=== PATIENT | female | born 1960 | race Caucasian/White ===

== ENCOUNTER 2016-10-11 11:28 | Emergency (ER) ==
[2016-10-11] MEDS ORDERED: PROTONIX IV ONE (12:24)
[2016-10-11] MEDS ORDERED: ZOFRAN IV ONE (12:24)
[2016-10-11] MEDS ORDERED: NS 1,000 ML IV ONE (12:24)
[2016-10-11] MEDS ORDERED: SODIUM CHLORIDE 0.9% INJ ONE (12:24)
[2016-10-11 12:34] LABS: BASO% 0.4 % (0.0-0.8); EOS% 3.4 % (0.0-10.0); HEMOGLOBIN 7.1 g/dL (12.0-16.0); IMM GRAN# 0.09 X1000 (0.0-0.04); IMM GRAN% 0.8 % (0.0-0.5); LYMPH# 1.04 X1000 (1.2-3.4); LYMPH% 8.9 % (20.5-51.1); MANUAL DIFF NEEDED? YES; MCH 32.4 PG (27-31); MCHC 29.6 g/dL (33-37); MCV 109.6 FL (81-99); MONO# 0.96 X1000 (0.11-0.59); MONO% 8.3 % (1.7-9.3); MPV 9.7 FL (7.4-10.4); NEUT% 78.2 % (42.2-75.2); PLT 499 X1000 (130-400); RBC 2.19 XMIL (4.2-5.4)
--- NOTE | 2016-10-11 13:08 | PROVIDER DOCUMENTATION ---
HPI-Abdominal Pain/GI Problem - General Chief Complaint: GI Bleed Stated Complaint: RECTAL BLEEDING,BLOOD COUNT LOW Time Seen by Provider: 10/11/16 12:22 Source: patient Allergies/Adverse Reactions: Patient Allergies Allergy/AdvReac Type Severity Reaction Status Date / Time nizatidine [From Axid] Allergy RASH Verified 08/01/16 10:10 Home Medications: Aspirin 81 mg PO DAILY 06/09/16 Hydrocodone/Acetaminophen [Nerinx 7.5-325 Tablet] 1 each PO Q4-6H PRN PRN Metoprolol [Lopressor] 25 mg PO BID 06/09/16 Sevelamer Carbonate [Renvela] 800 mg PO TID 06/09/16 Amiodarone [Cordarone] 200 mg PO DAILY 08/01/16 Warfarin [Coumadin] 5 mg PO QHS 08/01/16 - History of Present Illness-ABD Nature of Presenting Problems: Pt is 56 y/o F presents to the ED with rectal bleeding. Pt states bleeding started two days ago. Pt states Dr Marin did not want her to go to dialysis today due to rectal bleed and to go to ED and be admitted for rectal bleed. Pt states she did not come to ED Sunday due to having an appointment with Dr. Cordova, Pt states Dr. Cordova's office stated come to appointment at his office first. Pt denies BM today. Pt states bleeding with no BM. Pt states no bleeding today but two episodes yesterday. Pt states more fatigued today. Abdominal Pain Onset Location: reports: other (no abdominal pain) Pain Radiation: reports: no radiation Quality of Pain: reports: none Onset/Duration: reports: 2 days ago (rectal bleeding started) Timing: reports: still present, intermittent Activities at Onset: reports: light activity Exposure to sick contacts?: No Modifying Factors: improves with: nothing Associated Symptoms: reports: fatigue, weakness. denies: anxiety, arm pain, back/neck pain, chest pain, constipation, cough, diaphoresis, diarrhea, dizziness, EENT symptoms, fever/chills, genitourinary problems, headaches, heartburn, joint pain, loss of appetite, malaise, muscle aches, sinus congestion /drainage, nausea, rash, seizure, shortness of breath, sensory/motor loss, pain with inspiration, swelling/mass in abdomen, syncope, vomiting, trouble walking Last BM: last night Dark Stools Present?: reports: maroon, bright red blood Rectal Bleeding: reports: bleeding without stool Rectal Pain: reports: none Emesis Description: reports: none Bruising or Bleeding Gums?: No Similar Symptoms Previously?: Yes Recently seen or treated by another doctor?: Yes Review of Systems - Adult - REVIEW OF SYSTEMS - ADULT Constitutional: denies: chills, fever Eyes: denies: blurred vision, double vision Ears, Nose, Mouth & Throat: denies: ear pain, nose pain, throat pain Cardiovascular: reports: irregular heart rate (tachy). denies: chest pain, heart murmur Respiratory: denies: cough, shortness of breath, wheezing Gastrointestinal: reports: rectal bleeding. denies: abdominal pain, diarrhea, nausea, vomiting Genitourinary: denies: dysuria, hematuria Musculoskeletal: denies: bone pain, joint pain, neck pain Integumentary: denies: hives, itching Neurological: denies: dizziness/vertigo, headache/migraines Psychiatric: reports: no symptoms reported Endocrine: reports: no symptoms reported Hematologic/Lymphatic: reports: no symptoms reported Allergic/Immunologic: reports: no symptoms reported All Other Systems: Reviewed and Negative Past History - Adult - PAST MEDICAL HISTORY-ADULT Review of Records: reports: Nursing Assessment Review, Medications Reviewed, Social history reviewed & non-contributory. Major Childhood Illnesses: reports: denies history Cardiovascular: reports: A-Fib, HTN Respiratory: reports: denies history Gastrointestinal: reports: denies history Obstetrical/Gynecological: reports: denies history Genitourinary: reports: dialysis, ESRD, kidney disease Musculoskeletal: reports: other Neurological: reports: denies history Psychiatric: reports: denies history Endocrine/Immune: reports: denies history Other Conditions: reports: denies history - PRIOR SURGERIES/PROCEDURES Surgical/Procedure History: reports: appendectomy, cholecystectomy, hysterectomy , hernia repair - FAMILY HISTORY Family History: reviewed, not pertinent - SOCIAL HISTORY Smoking: cigarettes, less than 1 pack/day Provider spent 3-5 mins advising pt. on dangers of tobacco.: Discussed manners to quit use, and f/u contacts for add'l counseling. Substance Use: denies Living Situation: family Physical Exam-General - PHYSICAL EXAM-ADULT Initial Vital Signs Reviewed: Yes - CONSTITUTIONAL General Appearance: appears well, alert, no apparent distress, obese - EYES Eyes: PERRL/EOMI, pink conjunctivae - HEAD, EARS, NOSE, MOUTH & THROAT HENMT: normocephalic/atraumatic, normal ENT inspection. negative: moist mucous membranes (dry) - NECK Neck: non-tender, full range of motion, supple, normal inspection - RESPIRATORY Respiratory: chest non-tender, lungs clear, normal breath sounds - CARDIOVASCULAR Cardiovascular: normal peripheral pulses, no edema, tachycardia - GASTROINTESTINAL (ABDOMEN) Abdominal Exam: normal bowel sounds, non tender, soft - LYMPHATIC Lymphatic: no adenopathy - MUSCULOSKELETAL Back Exam: normal inspection, no CVA tenderness, no vertebral tenderness Extremity: normal range of motion, non-tender, normal gait - SKIN Integumentary: normal color, normal turgor, warm/dry - NEUROLOGIC Neurologic: larder cook II-XII nml as tested, grossly normal, no motor/sensory deficits - PSYCHIATRIC Psych/Mental Status: normal mood/affect, normal thought content, normal thought process, oriented x 3 Progress - PLAN OF CARE/RESULTS Progress/Plan/Lab Results: Laboratory Tests 10/11/16 11:48 WBC 11.63 H RBC 2.19 L Hgb 7.1 L Hct 24.0 L MCV 109.6 H MCH 32.4 H MCHC 29.6 L RDW Std Deviation 15.3 H Plt Count 499 H MPV 9.7 Immature Gran % (Auto) 0.8 H Neut % (Auto) 78.2 H Lymph % (Auto) 8.9 L [place] % (Auto) 8.3 Eos % (Auto) 3.4 Baso % (Auto) 0.4 Immature Gran # (Auto) 0.09 H Neut # (Auto) 9.09 H Lymph # (Auto) 1.04 L [place] # (Auto) 0.96 H Eos # (Auto) 0.40 Baso # (Auto) 0.05 Orders Category Date Time Status Finger Stick Blood Sugar (ED) DIRECTED Care 10/11/16 12:23 Active Orthostatic Vital Signs NOW Care 10/11/16 12:23 Active Saline Loc DIRECTED Care 10/11/16 12:22 Active Vital Signs Order Q15M Care 10/11/16 12:23 Active CBC WITH DIFF [HEME] Stat Lab 10/11/16 11:48 Results COMPREHENSIVE METABOLIC PANEL [CHEM] Stat Lab 10/11/16 11:48 Received OCCULT BLOOD NON-FECES Stat Lab 10/11/16 12:22 Uncollected OCCULT BLOOD SCREENING [STOOL] Stat Lab 10/11/16 12:22 Uncollected PROTIME WITH INR [COAG] Stat Lab 10/11/16 11:48 Received PTT [COAG] Stat Lab 10/11/16 11:48 Received TYPE & SCREEN [BBK] Stat Lab 10/11/16 11:48 Received 0.9% Sodium Chloride Inj [Ns] 1,000 ml Med 10/11/16 12:24 Active IV 999 mls/hr Ondansetron [Zofran] Med 10/11/16 12:24 Discontinued 4 mg IV NOW ONE Pantoprazole [Protonix] Med 10/11/16 12:24 Discontinued 40 mg IV NOW ONE Sodium Chloride 0.9% Med 10/11/16 12:24 Discontinued 10 ml INJ NOW ONE EKG [EKG] Stat Ther 10/11/16 12:23 Ordered Vital Signs - 24 hr 10/11/16 11:40 Temperature 98.2 F Pulse Rate 111 H Respiratory 18 Rate Blood Pressure 85/49 O2 Sat by Pulse 100 Oximetry Laboratory Tests 10/11/16 10/11/16 10/11/16 11:48 11:48 11:48 WBC 11.63 H RBC 2.19 L Hgb 7.1 L Hct 24.0 L MCV 109.6 H MCH 32.4 H MCHC 29.6 L RDW Std Deviation 15.3 H Plt Count 499 H MPV 9.7 Immature Gran % (Auto) 0.8 H Neut % (Auto) 78.2 H Lymph % (Auto) 8.9 L [place] % (Auto) 8.3 Eos % (Auto) 3.4 Baso % (Auto) 0.4 Immature Gran # (Auto) 0.09 H Neut # (Auto) 9.09 H Lymph # (Auto) 1.04 L [place] # (Auto) 0.96 H Eos # (Auto) 0.40 Baso # (Auto) 0.05 Segmented Neutrophils 82 H Lymphocytes 4 L Monocytes 10 H Eosinophils 4 Hypochromia 1+ Anisocytosis 1+ Macrocytosis 3+ PT 11.9 H INR 1.12 PTT (Actin FS) 30.0 Sodium 139 Potassium 3.9 Chloride 95 L Carbon Dioxide 20 L Anion Gap 24 BUN 50 H Creatinine 9.2 H Estimated GFR/1.73 m2 4 BUN/Creatinine Ratio 5 Glucose 94 Calculated Osmolality 291 Calcium 9.2 Total Bilirubin 0.30 AST 10 ALT 6 L Alkaline Phosphatase 156 H Total Protein 6.8 Albumin 3.1 L Globulin 3.7 Albumin/Globulin Ratio 0.8 Blood Type Antibody Screen 10/11/16 11:48 WBC RBC Hgb Hct MCV MCH MCHC RDW Std Deviation Plt Count MPV Immature Gran % (Auto) Neut % (Auto) Lymph % (Auto) [place] % (Auto) Eos % (Auto) Baso % (Auto) Immature Gran # (Auto) Neut # (Auto) Lymph # (Auto) [place] # (Auto) Eos # (Auto) Baso # (Auto) Segmented Neutrophils Lymphocytes Monocytes Eosinophils Hypochromia Anisocytosis Macrocytosis PT INR PTT (Actin FS) Sodium Potassium Chloride Carbon Dioxide Anion Gap BUN Creatinine Estimated GFR/1.73 m2 BUN/Creatinine Ratio Glucose Calculated Osmolality Calcium Total Bilirubin AST ALT Alkaline Phosphatase Total Protein Albumin Globulin Albumin/Globulin Ratio Blood Type O POSITIVE Antibody Screen NEGATIVE - CONSULTS/PCP/HOSPITALIST Notification #1 *Consult/PCP/Hospitalist*: Dr. Marin Time Discussed: 13:27 (Dr. Marin states will call back about Pt ) Reason/Comments: Dr. Sanders consults with Dr. Marin about Pt Consult Disposition: other Departure - Departure Time of Disposition Order: 14:49 DIAGNOSIS: Lower GI bleed Anemia Qualifiers: Anemia type: unspecified type Qualified Code(s): D64.9 - Anemia, unspecified Chronic renal failure Qualifiers: Chronic kidney disease stage: unspecified stage Qualified Code(s): N18.9 - Chronic kidney disease, unspecified Disposition: HOME 01 Certified Medical Emergency: Emergent Condition: Stable Additional Instructions: ED Follow Up Instructions: You have been treated by a care provider in the Emergency Department. These instructions are being provided to you so you can have an understanding of how to care for yourself upon discharge. Upon discharge from the Emergency Department, you are responsible for making arrangements for follow-up care by a physician of your choice. Take all prescribed medications as directed. Return to the Emergency Department immediately for any new or worsening symptoms. You may call the Physician Referral phone number at [phone] to obtain a list of Physicians who are taking new patients. Referrals: Kaveh Hoffmann [Primary Care Provider] - Attestation - Scribe Verification/Attestation Scribe:: Sada Corbett Acting as Scribe for:: Tristen Sanders Scribe documention review:: This chart was documented by a scribe and accurately reflects the service the provider performed and the decisions made by the provider.
[2016-10-11 13:20] LABS: INR 1.12; PROTIME 11.9 Seconds (9.2-11.7)
[2016-10-11 13:35] LABS: ALBUMIN 3.1 g/dL (3.5-5.0); CALCIUM 9.2 mg/dL (8.8-10.2); POTASSIUM 3.9 mmol/L (3.5-5.1); TOTAL BILIRUBIN 0.3 mg/dL (0.20-1.00); TOTAL PROTEIN 6.8 g/dL (6.3-8.3)
[2016-10-11 13:39] LABS: EOS 4 % (1-10); LYMPHS 4 % (21-51); MONO 10 % (1-9)
[2016-10-11] MEDS ORDERED: TIGHT: 0.2 ML/HR MISC PRN (13:39)
[2016-10-11] MEDS ORDERED: HEPARIN IV PRN (13:39)
[2016-10-11] MEDS ORDERED: NS 2,000 ML MISC PRN (13:39)
[2016-10-11 13:40] LABS: HYPOCHROM 1+
[2016-10-11 18:30] VITALS: BP 98/44
== END 2016-10-11 18:39 | disposition home or self-care (01) ==
LOC: ED 11:28
DX: K92.2 Gastrointestinal hemorrhage, unspecified (principal); D64.9 Anemia, unspecified; I12.0 Hypertensive chronic kidney disease with stage 5 chronic kidney disease or end stage renal disease; N18.6 End stage renal disease; Z99.2 Dependence on renal dialysis; R00.0 Tachycardia, unspecified; I48.91 Unspecified atrial fibrillation; R53.83 Other fatigue; Z79.899 Other long term (current) drug therapy; R53.1 Weakness; R10.9 Unspecified abdominal pain; E66.9 Obesity, unspecified; Z68.38 Body mass index [BMI] 38.0-38.9, adult; F17.210 Nicotine dependence, cigarettes, uncomplicated; Z71.6 Tobacco abuse counseling; Z79.82 Long term (current) use of aspirin; Z79.01 Long term (current) use of anticoagulants
CPT/HCPCS: 80053; 82948; 85025; 85610; 85730; 86850; 86900; 86901; 86920; 99282; P9016